=== PATIENT | female | born 1985 | race Caucasian/White ===

== ENCOUNTER 2018-05-29 10:15 | Day surgery (SDC) | payer MEDICAID ==
[2018-05-29 11:42] LABS: ADD MAN DIFF? NO
[2018-05-29 11:45] LABS: WHITE BLOOD COUNT 6.7 10^3/ul (4.8-10.8)
[2018-05-29 11:45] LABS: BASOPHILS % 0.4 % (0.0-2.0); EOSINOPHILS % 0.1 % (0.0-7.0); HEMOGLOBIN 13.1 g/dl (12.0-16.0); LYMPHOCYTES # 2.3 10^3/ul (0.8-2.9); LYMPHOCYTES % 33.4 % (15.0-51.0); MEAN CORPUSCULAR HEMOGLOBIN 29.5 pg (29.0-33.0); MEAN CORPUSCULAR HGB CONC 33.6 g/dl (32.0-37.0); MEAN CORPUSCULAR VOLUME 87.8 fl (82.0-101.0); MEAN PLATELET VOLUME 10.9 fl (7.4-10.4); MONOCYTE # 0.4 10^3/ul (0.3-0.9); MONOCYTES % 5.5 % (0.0-11.0); NEUTROPHIL # 4.1 10^3/ul (1.6-7.5); NEUTROPHILS % 60.5 % (39.0-77.0); PLATELET COUNT 258 10^3/UL (140-415); RED BLOOD COUNT 4.44 10^6/ul (4.20-5.40); RED CELL DISTRIBUTION WIDTH 12.5 % (11.5-14.5)
[2018-05-29] MEDS ORDERED: ROCURONIUM 50 MG INJ (12:32)
[2018-05-29] MEDS ORDERED: PROPOFOL 20 ML (12:32)
[2018-05-29] MEDS ORDERED: GLYCOPYRROLATE 0.4 MG INJ (12:32)
[2018-05-29] MEDS ORDERED: NEOSTIGMINE 3 MG/3 ML SYRINGE (12:32)
[2018-05-29] MEDS ORDERED: LIDOCAINE 2% (SDV) 5 ML INJ (12:32)
[2018-05-29] MEDS ORDERED: FENTAnyl 50 MCG/ML VIAL ×2 (12:33→14:14)
[2018-05-29] MEDS ORDERED: MIDAZOLAM 1 MG/ML 2 ML INJ (12:33)
[2018-05-29] MEDS ORDERED: DEXAMETHASONE 4 MG/ML 1 ML INJ (12:34)
[2018-05-29] MEDS ORDERED: ONDANSETRON 4 MG INJ (14:49)
== END 2018-05-29 13:45 | disposition home or self-care (01) ==
LOC: SDS 10:15
DX: Z30.2 Encounter for sterilization (principal); Z53.9 Procedure and treatment not carried out, unspecified reason
CPT/HCPCS: 84702; 85025; 86850; 86900; 86901

== ENCOUNTER 2018-08-07 10:03 | Day surgery (SDC) | payer MEDICAID ==
[~2018-08-07 10:03] MED LIST: DEXAMETHASONE 4 MG/ML 1 ML INJ; LIDOCAINE 2% (SDV) 5 ML INJ; ROCURONIUM 50 MG INJ
[2018-08-07 11:30] LABS: ADD MAN DIFF? NO
[2018-08-07 11:36] LABS: WHITE BLOOD COUNT 7.8 10^3/ul (4.8-10.8)
[2018-08-07 11:36] LABS: BASOPHILS % 0.3 % (0.0-2.0); EOSINOPHILS % 0.3 % (0.0-7.0); HEMATOCRIT 38.4 % (37.0-47.0); HEMOGLOBIN 13.1 g/dl (12.0-16.0); LYMPHOCYTES # 2.5 10^3/ul (0.8-2.9); LYMPHOCYTES % 31.9 % (15.0-51.0); MEAN CORPUSCULAR HEMOGLOBIN 30.3 pg (29.0-33.0); MEAN CORPUSCULAR HGB CONC 34.1 g/dl (32.0-37.0); MEAN CORPUSCULAR VOLUME 88.7 fl (82.0-101.0); MEAN PLATELET VOLUME 10.8 fl (7.4-10.4); MONOCYTE # 0.4 10^3/ul (0.3-0.9); MONOCYTES % 5.3 % (0.0-11.0); NEUTROPHIL # 4.8 10^3/ul (1.6-7.5); NEUTROPHILS % 62.1 % (39.0-77.0); PLATELET COUNT 282 10^3/UL (140-415); RED BLOOD COUNT 4.33 10^6/ul (4.20-5.40); RED CELL DISTRIBUTION WIDTH 12.7 % (11.5-14.5)
[2018-08-07] MEDS ORDERED: PROPOFOL 100 ML (12:18)
[2018-08-07] MEDS ORDERED: DEXAMETHASONE 4 MG/ML 1 ML INJ (12:57)
[2018-08-07] MEDS ORDERED: ONDANSETRON 4 MG INJ (12:57)
[2018-08-07] MEDS ORDERED: KETOROLAC 30 MG INJ (13:05)
[2018-08-07] MEDS ORDERED: SUGAMMADEX SODIUM 200 MG/2 ML VIAL IV (13:28)
[2018-08-07] MEDS ORDERED: CEFAZOLIN 1 GM INJ (13:38)
[2018-08-07] MEDS ORDERED: ROCURONIUM 50 MG INJ (13:38)
[2018-08-07] MEDS ORDERED: HYDROmorphONE 1 MG/5 ML IV SYRINGE IV ×3 (13:46→14:00)
[2018-08-07] MEDS: HYDROmorphONE 1 MG/5 ML IV SYRINGE IV ×2 (13:55→14:09)
[2018-08-07] MEDS ORDERED: METOCLOPRAMIDE 10 MG INJ IV (14:00)
[2018-08-07] MEDS ORDERED: OXYCODONE/ACETAMINOPHEN (5/325) TAB PO (14:00)
[2018-08-07] MEDS ORDERED: DIPHENHYDRAMINE 50 MG INJ IV (14:00)
[2018-08-07] MEDS ORDERED: ALBUTEROL 0.083% (NEB) 2.5 MG/3 ML AMP HHN (14:00)
[2018-08-07] MEDS ORDERED: ONDANSETRON 4 MG INJ IV (14:00)
[2018-08-07] MEDS ORDERED: MEPERIDINE 25 MG INJ IV (14:00)
[2018-08-07] MEDS ORDERED: LABETALOL HCL 20MG INJ IV (14:00)
[2018-08-07] MEDS ORDERED: EPHEDrine SULFATE 50 MG/5 ML SYG IV (14:00)
[2018-08-07] MEDS ORDERED: FENTAnyl 50 MCG/ML VIAL IV ×3 (14:00)
[2018-08-07] MEDS ORDERED: KETOROLAC 30 MG INJ IV (14:00)
[2018-08-07] MEDS ORDERED: hydrALAzine 20 MG INJ IV (14:00)
[2018-08-07] MEDS: OXYCODONE/ACETAMINOPHEN (5/325) TAB PO (15:43)
== END 2018-08-07 16:10 | disposition home or self-care (01) ==
LOC: SDS 10:03
DX: Z30.2 Encounter for sterilization (principal)
CPT/HCPCS: 58670; 84703; 85025; 86900; 86901